=== PATIENT | male | born 1965 | race African-American/Black ===

== ENCOUNTER 2024-01-21 08:19 | Emergency (ER) | payer OTHER ==
[2024-01-21 10:08] LABS: #Basophils 0.04 10x3/uL (0.0-0.2); #Neutrophils 3.67 10x3/uL (1.5-8.4); %Basophils 0.6 % (0.0-2.0); %Eosinophils 12.7 % (0.0-6.0); %Lymphocytes 21.7 % (18.0-47.0); %Monocytes 12.7 % (0.0-10.0); Hematocrit 29.6 % (38.8-50.0); Hemoglobin 9.6 g/dL (13.5-17.5); Mean Corpuscular HGB CONC 32.4 g/dL (32.0-36.0); Mean Corpuscular Hemoglobin 29.6 pg (27.0-33.0); Mean Corpuscular Volume 91.4 fL (81.2-95.1); Mean Platelet Volume 9.5 fL (7.4-10.4); Platelet Count 203 10x3/uL (150-450); RBC Distribution Width 14.6 % (11.5-14.5); Red Blood Cell (RBC) Count 3.24 10x6/uL (4.32-5.72); White Blood Cell (WBC) Count 7.1 10x3/uL (3.5-10.5)
[2024-01-21 10:25] LABS: ALT (SGPT) 43 U/L (8-55); AST (SGOT) 49 U/L (5-34); Albumin 3.7 g/dL (3.5-5.0); Alkaline Phosphatase 95 U/L (40-110); Anion Gap 19 mmol/L (10-20); BUN (Urea Nitrogen) 38 mg/dL (8.4-25.7); Bilirubin, Total 0.5 mg/dL (0.2-1.2); Calc. Creatinine Clearance 0 mL/min (70-130); Carbon Dioxide 28 mmol/L (22-29); Chloride 98 mmol/L (98-107); Estimated GFR 7; Globulin 3.5 g/dL (2.4-3.5); Glucose 157 mg/dL (70-105); Potassium 4.3 mmol/L (3.5-5.1); Protein, Total 7.2 g/dL (6.0-8.3); Sodium 141 mmol/L (136-145)
[2024-01-21 11:08] LABS: Influenza A by NAA Not Detected (NotDetected); Influenza B by NAA Not Detected (NotDetected); SARS-CoV-2 NAA Rapid Test Not Detected (NotDetected)
[2024-01-21] MEDS ORDERED: Benzonatate 100 MG CAP ONE (13:11)
== END 2024-01-21 13:25 | disposition home or self-care (01) ==
LOC: CSHERS 08:19
DX: J06.9 Acute upper respiratory infection, unspecified (principal); E11.9 Type 2 diabetes mellitus without complications; I11.0 Hypertensive heart disease with heart failure; I50.9 Heart failure, unspecified; F17.210 Nicotine dependence, cigarettes, uncomplicated; Z99.2 Dependence on renal dialysis
CPT/HCPCS: 36415; 71045; 80053; 83880; 85025; 93005